=== PATIENT | male | born 1950 | race Hispanic/Latino ===

== ENCOUNTER 2022-03-16 12:51 | Outpatient (CLI) | payer MEDICARE ==
[2022-03-17 00:56] LABS: SARS-CoV-2 PCR by NAA Not Detected (NotDetected)
== END 2022-03-16 12:52 | disposition home or self-care (01) ==
LOC: CSHLAB 12:51
PROVIDERS: ATTEND Internal Medicine Gastroenterology
DX: Z20.822 Contact with and (suspected) exposure to COVID-19 (principal); Z12.11 Encounter for screening for malignant neoplasm of colon
CPT/HCPCS: U0003; U0005

== ENCOUNTER → 2022-03-18 | Day surgery (SDC) | payer MEDICARE ==
[2022-03-16 13:11] VITALS: BMI 32.5
[~2022-03-18] MED LIST: Lidocaine 2% MPF 10 ML AMP (For Epidural Use) ONE; PROPOFOL 0 ML ONE
== END ==
LOC: CSHSDC 06:17
PROVIDERS: ATTEND Internal Medicine Gastroenterology
DX: Z08 Encounter for follow-up examination after completed treatment for malignant neoplasm (principal); Z85.038 Personal history of other malignant neoplasm of large intestine; E78.5 Hyperlipidemia, unspecified; I10 Essential (primary) hypertension; I49.9 Cardiac arrhythmia, unspecified; Z53.9 Procedure and treatment not carried out, unspecified reason
CPT/HCPCS: J2704

== ENCOUNTER 2022-03-30 17:58 | Outpatient (CLI) | payer MEDICARE ==
[2022-03-31 07:41] LABS: SARS-CoV-2 PCR by NAA Not Detected (NotDetected)
== END 2022-03-30 17:59 | disposition home or self-care (01) ==
LOC: CSHLAB 17:58
PROVIDERS: ATTEND Internal Medicine Gastroenterology
DX: Z20.822 Contact with and (suspected) exposure to COVID-19 (principal); Z12.11 Encounter for screening for malignant neoplasm of colon
CPT/HCPCS: U0003; U0005

== ENCOUNTER 2022-04-01 08:46 | Day surgery (SDC) | payer MEDICARE ==
[2022-03-31 13:15] VITALS: BMI 29.5
[2022-04-01] MEDS ORDERED: Lidocaine 1% MPF 2 ML VIAL ONE (09:57)
[2022-04-01] MEDS ORDERED: PROPOFOL 20 ML ONE (10:00)
[2022-04-01] MEDS ORDERED: Lidocaine 1% PF 5 ML VIAL ONE (10:00)
[2022-04-01] MEDS ORDERED: ePHEDrine Sulfate 50 MG/10 ML VIAL ONE (10:24)
[2022-04-01] MEDS ORDERED: PHENYLEPHRINE-NS 100 MCG/ML 10 ML SYRINGE ONE (10:30)
== END 2022-04-01 11:45 | disposition home or self-care (01) ==
LOC: CSHSDC 08:46
PROVIDERS: ATTEND Internal Medicine Gastroenterology
PROC: 0DJD8ZZ Inspection of Lower Intestinal Tract, Via Natural or Artificial Opening Endoscopic (ICD-10-PCS; principal; 2022-04-01)
DX: Z12.11 Encounter for screening for malignant neoplasm of colon (principal); Z85.038 Personal history of other malignant neoplasm of large intestine; Z86.010 Personal history of colon polyps; K64.9 Unspecified hemorrhoids; E78.5 Hyperlipidemia, unspecified; I10 Essential (primary) hypertension; Z20.822 Contact with and (suspected) exposure to COVID-19
CPT/HCPCS: J2704

== ENCOUNTER 2022-05-04 22:28 | Observation (INO) | payer MEDICARE ==
[2022-05-04] MEDS ORDERED: Magnesium 2 GM/50 ML BAG (IN WATER) ONE (23:02)
[2022-05-04 23:04] LABS: #Eosinphils 0.2 10x3/uL (0.0-0.5); #Monocytes 0.5 10x3/uL (0.0-1.1); #Neutrophils 3.7 10x3/uL (1.5-8.4); %Basophils 0.3 % (0.0-2.0); %Eosinophils 3.3 % (0.0-6.0); %Lymphocytes 27.3 % (18.0-47.0); %Monocytes 8.2 % (0.0-10.0); %Neutrophils 60.7 % (40.0-75.0); Hemoglobin 14.3 g/dL (13.5-17.5); Mean Corpuscular Hemoglobin 28.8 pg (27.0-33.0); Mean Corpuscular Volume 82.1 fl (81.2-95.1); Platelet Count 209 10x3/uL (150-450); Red Blood Cell (RBC) Count 4.97 10x6/uL (4.32-5.72)
[2022-05-04] MEDS ORDERED: Enoxaparin Sodium 100 MG/ML SYRINGE ONE (23:05)
[2022-05-04] MEDS ORDERED: Fentanyl 100 MCG/2 ML VIAL ONE (23:07)
[2022-05-04 23:17] LABS: ALT (SGPT) 15 U/L (8-55); AST (SGOT) 33 U/L (5-34); Albumin 4.3 g/dL (3.4-4.8); Alkaline Phosphatase 50 U/L (40-110); Anion Gap 22 mmol/L (10-20); BUN (Urea Nitrogen) 25 mg/dL (8.4-25.7); Bilirubin, Total 0.4 mg/dL (0.2-1.2); Calc. Creatinine Clearance 0 mL/min (70-130); Calcium 9.8 mg/dL (7.8-10.44); Carbon Dioxide 17 mmol/L (23-31); Chloride 99 mmol/L (98-107); Estimated GFR 68; Globulin 3.2 g/dL (2.4-3.5); Glucose 85 mg/dL (83-110); Lipase 22 U/L (8-78); Potassium 4.1 mmol/L (3.5-5.1); Protein, Total 7.5 g/dL (5.8-8.1); Sodium 134 mmol/L (136-145)
[2022-05-04] MEDS ORDERED: Digoxin 0.5 MG/2 ML AMP ONE (23:19)
[2022-05-04 23:37] LABS: CKMB 2.3 ng/mL (0-6.6)
[2022-05-05] MEDS ORDERED: Ondansetron PF 4 MG/2 ML Vial IVP PRN (00:27)
[2022-05-05] MEDS ORDERED: Guaifenesin DM 100-10/5 ML UDCUP PO PRN (00:27)
[2022-05-05] MEDS ORDERED: HYDROcodone/Acetaminophen 5/325 mg Tablet PO PRN (00:27)
[2022-05-05] MEDS ORDERED: Acetaminophen 325 MG TAB PO PRN (00:27)
[2022-05-05] MEDS ORDERED: Senokot S 8.6-50 MG TAB PO PRN (00:27)
[2022-05-05] MEDS ORDERED: Calcium Carbonate 500 MG ChewTAB PO PRN (00:27)
[2022-05-05 02:11] VITALS: BMI 29.6
[2022-05-05 02:57] LABS: SARS-CoV-2 NAA Rapid Test Not Detected (NotDetected)
[2022-05-05 05:26] LABS: Anion Gap 13 mmol/L (10-20); BUN (Urea Nitrogen) 21 mg/dL (8.4-25.7); Calc. Creatinine Clearance 95 mL/min (70-130); Calcium 8.6 mg/dL (7.8-10.44); Carbon Dioxide 22 mmol/L (23-31); Chloride 102 mmol/L (98-107); Estimated GFR 91; Glucose 101 mg/dL (83-110); Sodium 133 mmol/L (136-145)
[2022-05-05 05:38] LABS: Thyroid Stimulating Hormone 3.2735 uIU/mL (0.35-4.94)
[2022-05-05 05:47] LABS: Free T4 (Free Thyroxine) 0.93 ng/dL (0.70-1.48)
[2022-05-05 06:16] LABS: CKMB 9.8 ng/mL (0-6.6)
[2022-05-05] MEDS: Aspirin 81 mg Enteric Coated Tablet PO SCH (08:44)
[2022-05-05] MEDS: Amiodarone 200 MG TAB PO SCH ×2 (08:45→20:36)
[2022-05-05] MEDS ORDERED: Apixaban 5 MG TAB PO SCH (09:00)
[2022-05-05] MEDS ORDERED: Enoxaparin Sodium 100 MG/ML SYRINGE SC SCH (10:00)
[2022-05-05 10:02] LABS: Troponin I 1.389 ng/mL (< 0.028)
[2022-05-05 10:02] LABS: CKMB 11.4 ng/mL (0-6.6)
[2022-05-05 17:29] LABS: Troponin I 1.144 ng/mL (< 0.028)
[2022-05-05] MEDS: Enoxaparin Sodium 100 MG/ML SYRINGE SC SCH (20:37)
[2022-05-05] MEDS ORDERED: Atorvastatin Calcium 20 MG TAB PO SCH (21:00)
[2022-05-06] MEDS: Enoxaparin Sodium 100 MG/ML SYRINGE SC SCH (08:25)
[2022-05-06] MEDS: Aspirin 81 mg Enteric Coated Tablet PO SCH (08:25)
[2022-05-06] MEDS: Amiodarone 200 MG TAB PO SCH (08:25)
[2022-05-06 12:43] VITALS: BP 116/62; TEMP 98
[2022-05-06] MEDS ORDERED: Apixaban 5 MG TAB PO SCH (21:00)
== END 2022-05-06 13:09 | disposition home or self-care (01) ==
LOC: CSHERS 22:28 → CSHTELE 05-05 01:44
PROVIDERS: ADMIT Family Medicine; ATTEND Family Medicine
DX: I48.91 Unspecified atrial fibrillation (principal); I13.0 Hypertensive heart and chronic kidney disease with heart failure and stage 1 through stage 4 chronic kidney disease, or unspecified chronic kidney disease; N18.2 Chronic kidney disease, stage 2 (mild); I50.22 Chronic systolic (congestive) heart failure; E78.5 Hyperlipidemia, unspecified; I25.10 Atherosclerotic heart disease of native coronary artery without angina pectoris; Z85.038 Personal history of other malignant neoplasm of large intestine; Z86.73 Personal history of transient ischemic attack (TIA), and cerebral infarction without residual deficits; Z79.02 Long term (current) use of antithrombotics/antiplatelets; Z79.82 Long term (current) use of aspirin; Z79.899 Other long term (current) drug therapy; Z90.49 Acquired absence of other specified parts of digestive tract; Z95.1 Presence of aortocoronary bypass graft; Z95.5 Presence of coronary angioplasty implant and graft; Z20.822 Contact with and (suspected) exposure to COVID-19
CPT/HCPCS: 71045; 80048; 80053; 82553 ×2; 83690; 83880; 84439; 84443; 84484 ×3; 85025; 93005 ×2; 93306; 96372 ×2; G0378 ×3; U0002; 36415; 92960; 93010; 96365; 96375; 99152; J1160; J1650; J3010; J3475

== ENCOUNTER 2023-11-12 15:23 | Emergency (ER) | payer MEDICARE | END 2023-11-12 16:46 | disposition home or self-care (01) | LOC: CSHERS 15:23 | DX: Z76.0 Encounter for issue of repeat prescription (principal); I10 Essential (primary) hypertension; E78.5 Hyperlipidemia, unspecified; I25.10 Atherosclerotic heart disease of native coronary artery without angina pectoris; Z79.899 Other long term (current) drug therapy | CPT/HCPCS: 99281 ==

== ENCOUNTER 2024-01-06 16:37 | Emergency (ER) | payer MEDICARE ==
[2024-01-06] MEDS ORDERED: Apixaban 5 MG TAB ONE (20:27)
== END 2024-01-06 21:02 | disposition home or self-care (01) ==
LOC: CSHERS 16:37
DX: Z76.0 Encounter for issue of repeat prescription (principal); I10 Essential (primary) hypertension; I48.91 Unspecified atrial fibrillation; I25.10 Atherosclerotic heart disease of native coronary artery without angina pectoris; E78.5 Hyperlipidemia, unspecified; Z95.1 Presence of aortocoronary bypass graft; Z55.6 Problems related to health literacy; Z79.01 Long term (current) use of anticoagulants
CPT/HCPCS: 99281

== ENCOUNTER 2025-06-13 21:47 | Emergency (ER) | payer MEDICARE, SELFPAY ==
[2025-06-13] MEDS ORDERED: Apixaban 5 MG TAB ONE (21:57)
== END 2025-06-13 22:01 | disposition home or self-care (01) ==
LOC: CSHERS 21:47
DX: Z76.0 Encounter for issue of repeat prescription (principal)
CPT/HCPCS: 99281

== ENCOUNTER 2025-06-26 21:29 | Emergency (ER) | payer MEDICARE ==
[2025-06-27] MEDS ORDERED: Apixaban 5 MG TAB ONE (00:37)
== END 2025-06-27 00:42 | disposition home or self-care (01) ==
LOC: CSHERS 21:29
DX: Z76.0 Encounter for issue of repeat prescription (principal)
CPT/HCPCS: 99281